=== PATIENT | male | born 1945 | race Caucasian/White ===

== ENCOUNTER 2021-02-03 15:06 | Inpatient (IN) ==
[2021-02-03] MEDS ORDERED: Ipratropium/Albuterol Neb 3 ML IH ONE (15:22)
[2021-02-03] MEDS ORDERED: Isovue-370 500 ML BOTTLE IVP ONE (15:26)
[2021-02-03 16:15] LABS: Magnesium 1.5 mg/dL (1.6-2.6); Phosphorous 4.2 mg/dL (2.7-4.5)
[2021-02-03 16:16] LABS: INR 1.2; Prothrombin Time 13.2 Seconds (9.4-12.1); Troponin I 0.03 ng/mL (< 0.04)
[2021-02-03 16:18] LABS: Activated Partial Thrombo Time 30.8 Seconds (26.0-36.0)
[2021-02-03] MEDS: 0.9 % Sodium Chloride 1,000 ML IVC SCH ×2 (16:28→23:57)
[2021-02-03] MEDS ORDERED: Magnesium Sulfate 1 GM/102 ML PIGGYBACK IVPB ONE (19:32)
[2021-02-03] MEDS ORDERED: Naloxone 0.4 MG/ML INJ IVP PRN (19:38)
[2021-02-03] MEDS ORDERED: D5% in Water 1,000 ML IVC PRN (20:12)
[2021-02-03] MEDS ORDERED: Dextrose Gel 15 GM/37.5 ML TUBE PO PRN ×2 (20:12)
[2021-02-03] MEDS ORDERED: *HR* Dextrose 50 % in Water (Syg) 50 ML SYRINGE IVP PRN (20:12)
[2021-02-03] MEDS: Ipratropium 1 PUFF INHALER IH SCH (22:17)
[2021-02-03] MEDS: Insulin LISPRO 300 UNITS/3 ML VIAL SUBQ SCH (23:34)
[2021-02-03 23:42] LABS: Albumin 3.4 g/dL (3.5-5.7); Albumin/Globulin Ratio 1.2 (1.1-2.2); Bilirubin,Direct 0.1 mg/dL (0.0-0.2); Bilirubin,Indirect 0.4 mg/dL (0.0-1.0); Bilirubin,Total 0.5 mg/dL (0.3-1.0); Globulin 2.8 g/dL (2.4-3.5); Total Protein 6.2 g/dL (6.4-8.9)
[2021-02-04] MEDS: Ipratropium 1 PUFF INHALER IH SCH ×4 (03:35→22:40)
[2021-02-04 05:01] LABS: Hematocrit 32.8 % (37.5-50.1); Hemoglobin 11.2 g/dL (12.9-16.9); Mean Corpuscular HGB Conc 34.1 g/dL (31.6-35.5); Mean Corpuscular Hemoglobin 30.9 pg (28.0-33.3); Mean Corpuscular Volume 90.6 fL (83.0-100.0); Mean Platelet Volume 10.9 fL (9.4-12.4); Platelet Count 171 K/mcL (140-400); Red Blood Count 3.62 M/mcL (4.19-5.50); Red Cell Distribution Width 12.8 % (11.5-14.5); White Blood Count 3.2 K/mcL (4.3-11.1)
[2021-02-04 05:19] LABS: BUN/Creatinine Ratio 24 (6-26); Blood Urea Nitrogen 24 mg/dL (8-23); Calcium 7.9 mg/dL (8.6-10.3); Carbon Dioxide 28 mEq/L (23-29); Chloride 98 mEq/L (98-107); Glucose 236 mg/dL (70-105); Osmolality,Calculated 290 (280-300); Potassium 4.5 mEq/L (3.5-5.1); Sodium 134 mEq/L (136-145); eGFR For African Americans > 60 (> 60); eGFR For Non-African Americans > 60 (> 60)
[2021-02-04] MEDS: *HR* Enoxaparin 40 MG/0.4 ML SYRINGE SQ SCH (06:04)
[2021-02-04] MEDS: 0.9 % Sodium Chloride 1,000 ML IVC SCH (06:04)
[2021-02-04] MEDS ORDERED: Remdesivir 200 MG in 0.9 % Sodium Chloride 100 ML IVPB ONE (09:12)
[2021-02-04] MEDS: Insulin LISPRO 300 UNITS/3 ML VIAL SUBQ SCH ×4 (09:57→22:38)
[2021-02-04] MEDS ORDERED: SODIUM CHLORIDE 0.9% IVPB ONE (19:30)
[2021-02-04] MEDS ORDERED: TOCILIZUMAB IVPB ONE (19:30)
[2021-02-05 03:39] LABS: Hemoglobin 11.8 g/dL (12.9-16.9); Immature Granulocytes % 0.3 % (0-4); Lymphocytes # 0.5 K/mcL (0.6-4.6); Lymphocytes % 5.3 %; Mean Corpuscular HGB Conc 34.7 g/dL (31.6-35.5); Mean Corpuscular Hemoglobin 32.1 pg (28.0-33.3); Mean Corpuscular Volume 92.4 fL (83.0-100.0); Mean Platelet Volume 10.6 fL (9.4-12.4); Monocytes # 0.8 K/mcL (0.0-1.3); Monocytes % 8.8 %; Neutrophils # 7.5 K/mcL (1.6-8.9); Platelet Count 220 K/mcL (140-400); Red Blood Count 3.68 M/mcL (4.19-5.50); Red Cell Distribution Width 13.1 % (11.5-14.5); Segmented Neutrophils % 85.6 %
[2021-02-05 03:40] LABS: Albumin 3.4 g/dL (3.5-5.7); Albumin/Globulin Ratio 1.2 (1.1-2.2); BUN/Creatinine Ratio 24 (6-26); Bilirubin,Direct 0.1 mg/dL (0.0-0.2); Bilirubin,Indirect 0.4 mg/dL (0.0-1.0); Bilirubin,Total 0.5 mg/dL (0.3-1.0); Blood Urea Nitrogen 24 mg/dL (8-23); Calcium 8.4 mg/dL (8.6-10.3); Carbon Dioxide 26 mEq/L (23-29); Chloride 102 mEq/L (98-107); Globulin 2.8 g/dL (2.4-3.5); Glucose 171 mg/dL (70-105); Osmolality,Calculated 294 (280-300); Potassium 5.1 mEq/L (3.5-5.1); Sodium 138 mEq/L (136-145); Total Protein 6.2 g/dL (6.4-8.9); eGFR For African Americans > 60 (> 60); eGFR For Non-African Americans > 60 (> 60)
[2021-02-05 03:47] LABS: White Blood Count 8.8 K/mcL (4.3-11.1)
[2021-02-05] MEDS: Ipratropium 1 PUFF INHALER IH SCH ×4 (04:18→21:47)
[2021-02-05] MEDS: *HR* Enoxaparin 40 MG/0.4 ML SYRINGE SQ SCH (05:59)
[2021-02-05] MEDS: Insulin LISPRO 300 UNITS/3 ML VIAL SUBQ SCH ×4 (09:37→21:28)
[2021-02-05] MEDS: Remdesivir 100 MG in 0.9 % Sodium Chloride 100 ML IVPB SCH (09:37)
[2021-02-05] MEDS: carvediloL 6.25 MG TABLET PO SCH (21:31)
[2021-02-06] MEDS: Ipratropium 1 PUFF INHALER IH SCH ×4 (03:41→22:27)
[2021-02-06] MEDS: *HR* Enoxaparin 40 MG/0.4 ML SYRINGE SQ SCH (05:54)
[2021-02-06 06:39] LABS: Basophils % 0.1 %; Hematocrit 36.5 % (37.5-50.1); Hemoglobin 12.2 g/dL (12.9-16.9); Immature Granulocytes % 0.7 % (0-4); Lymphocytes # 0.4 K/mcL (0.6-4.6); Lymphocytes % 5.4 %; Mean Corpuscular HGB Conc 33.4 g/dL (31.6-35.5); Mean Corpuscular Hemoglobin 30.5 pg (28.0-33.3); Mean Corpuscular Volume 91.3 fL (83.0-100.0); Mean Platelet Volume 10.3 fL (9.4-12.4); Monocytes # 0.8 K/mcL (0.0-1.3); Monocytes % 9.1 %; Neutrophils # 6.9 K/mcL (1.6-8.9); Platelet Count 248 K/mcL (140-400); Segmented Neutrophils % 84.7 %; White Blood Count 8.2 K/mcL (4.3-11.1)
[2021-02-06 06:49] LABS: Alanine Aminotransferase 26 Units/L (7-52); Albumin 3.4 g/dL (3.5-5.7); Albumin/Globulin Ratio 1.2 (1.1-2.2); Alkaline Phosphatase 79 Units/L (34-104); Aspartate Amino Transferase 28 Units/L (13-39); BUN/Creatinine Ratio 29 (6-26); Bilirubin,Direct 0.3 mg/dL (0.0-0.2); Bilirubin,Indirect 0.3 mg/dL (0.0-1.0); Bilirubin,Total 0.6 mg/dL (0.3-1.0); Blood Urea Nitrogen 24 mg/dL (8-23); Calcium 8.8 mg/dL (8.6-10.3); Carbon Dioxide 26 mEq/L (23-29); Chloride 104 mEq/L (98-107); Globulin 2.8 g/dL (2.4-3.5); Glucose 200 mg/dL (70-105); Osmolality,Calculated 300 (280-300); Potassium 4.4 mEq/L (3.5-5.1); Sodium 140 mEq/L (136-145); Total Protein 6.2 g/dL (6.4-8.9); eGFR For African Americans > 60 (> 60); eGFR For Non-African Americans > 60 (> 60)
[2021-02-06] MEDS: Cholecalciferol (D-3) 1,000 UNIT (25MCG) TABLET PO SCH (07:56)
[2021-02-06] MEDS: amLODIPine 5 MG TABLET PO SCH (07:56)
[2021-02-06] MEDS: Insulin LISPRO 300 UNITS/3 ML VIAL SUBQ SCH ×4 (07:56→21:30)
[2021-02-06] MEDS: Aspirin Enteric Coated 81 MG Tablet PO SCH (07:56)
[2021-02-06] MEDS: lisinopriL 20 MG TABLET PO SCH (07:56)
[2021-02-06] MEDS: carvediloL 6.25 MG TABLET PO SCH ×2 (07:56→21:53)
[2021-02-06] MEDS: Remdesivir 100 MG in 0.9 % Sodium Chloride 100 ML IVPB SCH (09:30)
[2021-02-07 01:53] LABS: Basophils % 0.3 %; Hematocrit 37.1 % (37.5-50.1); Hemoglobin 12.2 g/dL (12.9-16.9); Immature Granulocytes % 0.6 % (0-4); Lymphocytes # 0.6 K/mcL (0.6-4.6); Mean Corpuscular HGB Conc 32.9 g/dL (31.6-35.5); Mean Corpuscular Hemoglobin 30.3 pg (28.0-33.3); Mean Corpuscular Volume 92.3 fL (83.0-100.0); Mean Platelet Volume 10.3 fL (9.4-12.4); Monocytes # 0.4 K/mcL (0.0-1.3); Monocytes % 5.9 %; Platelet Count 295 K/mcL (140-400); Red Blood Count 4.02 M/mcL (4.19-5.50); Red Cell Distribution Width 12.7 % (11.5-14.5); Segmented Neutrophils % 85.2 %
[2021-02-07 02:08] LABS: Albumin 3.3 g/dL (3.5-5.7); Albumin/Globulin Ratio 1.3 (1.1-2.2); Bilirubin,Direct 0.2 mg/dL (0.0-0.2); Bilirubin,Indirect 0.5 mg/dL (0.0-1.0); Bilirubin,Total 0.7 mg/dL (0.3-1.0); Globulin 2.6 g/dL (2.4-3.5); Total Protein 5.9 g/dL (6.4-8.9)
[2021-02-07 02:11] LABS: BUN/Creatinine Ratio 34 (6-26); Blood Urea Nitrogen 28 mg/dL (8-23); Calcium 8.5 mg/dL (8.6-10.3); Carbon Dioxide 23 mEq/L (23-29); Chloride 103 mEq/L (98-107); Glucose 211 mg/dL (70-105); Osmolality,Calculated 294 (280-300); Potassium 4.7 mEq/L (3.5-5.1); Sodium 136 mEq/L (136-145); eGFR For African Americans > 60 (> 60); eGFR For Non-African Americans > 60 (> 60)
[2021-02-07 02:20] LABS: Platelet Estimate Normal (Normal)
[2021-02-07] MEDS: Acetaminophen 325 MG TABLET PO PRN (04:19)
[2021-02-07] MEDS: Ipratropium 1 PUFF INHALER IH SCH ×4 (04:36→20:43)
[2021-02-07] MEDS: *HR* Enoxaparin 40 MG/0.4 ML SYRINGE SQ SCH (05:52)
[2021-02-07] MEDS: Insulin LISPRO 300 UNITS/3 ML VIAL SUBQ SCH ×4 (07:44→20:41)
[2021-02-07] MEDS: amLODIPine 5 MG TABLET PO SCH (07:47)
[2021-02-07] MEDS: Aspirin Enteric Coated 81 MG Tablet PO SCH (07:47)
[2021-02-07] MEDS: Cholecalciferol (D-3) 1,000 UNIT (25MCG) TABLET PO SCH (07:47)
[2021-02-07] MEDS: carvediloL 6.25 MG TABLET PO SCH ×2 (07:47→16:18)
[2021-02-07] MEDS: lisinopriL 20 MG TABLET PO SCH (07:47)
[2021-02-07] MEDS: Remdesivir 100 MG in 0.9 % Sodium Chloride 100 ML IVPB SCH (09:09)
[2021-02-08 01:27] LABS: Albumin/Globulin Ratio 1.2 (1.1-2.2); Bilirubin,Direct 0.3 mg/dL (0.0-0.2); Bilirubin,Indirect 0.5 mg/dL (0.0-1.0); Bilirubin,Total 0.8 mg/dL (0.3-1.0); Globulin 2.6 g/dL (2.4-3.5); Total Protein 5.6 g/dL (6.4-8.9)
[2021-02-08 01:30] LABS: BUN/Creatinine Ratio 37 (6-26); Blood Urea Nitrogen 31 mg/dL (8-23); Calcium 8.1 mg/dL (8.6-10.3); Carbon Dioxide 22 mEq/L (23-29); Chloride 101 mEq/L (98-107); Glucose 287 mg/dL (70-105); Osmolality,Calculated 293 (280-300); Potassium 4.7 mEq/L (3.5-5.1); Sodium 133 mEq/L (136-145); eGFR For African Americans > 60 (> 60); eGFR For Non-African Americans > 60 (> 60)
[2021-02-08 01:32] LABS: Basophils % 0.1 %; Hematocrit 35.1 % (37.5-50.1); Hemoglobin 11.7 g/dL (12.9-16.9); Immature Granulocytes % 0.5 % (0-4); Lymphocytes # 0.5 K/mcL (0.6-4.6); Lymphocytes % 7.3 %; Mean Corpuscular HGB Conc 33.3 g/dL (31.6-35.5); Mean Corpuscular Hemoglobin 29.8 pg (28.0-33.3); Mean Corpuscular Volume 89.5 fL (83.0-100.0); Mean Platelet Volume 10.2 fL (9.4-12.4); Monocytes # 0.4 K/mcL (0.0-1.3); Monocytes % 5.5 %; Neutrophils # 6.3 K/mcL (1.6-8.9); Platelet Count 314 K/mcL (140-400); Red Blood Count 3.92 M/mcL (4.19-5.50); Red Cell Distribution Width 12.5 % (11.5-14.5); Segmented Neutrophils % 86.6 %; White Blood Count 7.3 K/mcL (4.3-11.1)
[2021-02-08 02:33] LABS: Anisocytosis 1+ (Not Present); Platelet Estimate Normal (Normal)
[2021-02-08] MEDS: Ipratropium 1 PUFF INHALER IH SCH ×4 (04:20→22:21)
[2021-02-08] MEDS: *HR* Enoxaparin 40 MG/0.4 ML SYRINGE SQ SCH (06:04)
[2021-02-08] MEDS: amLODIPine 5 MG TABLET PO SCH (08:40)
[2021-02-08] MEDS: Aspirin Enteric Coated 81 MG Tablet PO SCH (08:40)
[2021-02-08] MEDS: Cholecalciferol (D-3) 1,000 UNIT (25MCG) TABLET PO SCH (08:40)
[2021-02-08] MEDS: carvediloL 6.25 MG TABLET PO SCH ×2 (08:40→17:18)
[2021-02-08] MEDS: lisinopriL 20 MG TABLET PO SCH (08:40)
[2021-02-08] MEDS: Insulin LISPRO 300 UNITS/3 ML VIAL SUBQ SCH ×4 (08:40→21:51)
[2021-02-08] MEDS: polyethylene glycoL 3350 17 GM POWD.PACK PO SCH (10:58)
[2021-02-08] MEDS: Remdesivir 100 MG in 0.9 % Sodium Chloride 100 ML IVPB SCH (10:58)
[2021-02-09 02:20] LABS: Basophils % 0.2 %; Hematocrit 33.3 % (37.5-50.1); Hemoglobin 11.6 g/dL (12.9-16.9); Immature Granulocytes % 0.6 % (0-4); Lymphocytes # 0.6 K/mcL (0.6-4.6); Lymphocytes % 4.8 %; Mean Corpuscular HGB Conc 34.8 g/dL (31.6-35.5); Mean Platelet Volume 10.4 fL (9.4-12.4); Monocytes % 6.6 %; Platelet Count 450 K/mcL (140-400); Red Blood Count 3.74 M/mcL (4.19-5.50); Red Cell Distribution Width 12.4 % (11.5-14.5); Segmented Neutrophils % 87.8 %
[2021-02-09 02:38] LABS: BUN/Creatinine Ratio 36 (6-26); Blood Urea Nitrogen 33 mg/dL (8-23); Calcium 8.3 mg/dL (8.6-10.3); Carbon Dioxide 23 mEq/L (23-29); Chloride 100 mEq/L (98-107); Glucose 191 mg/dL (70-105); Osmolality,Calculated 288 (280-300); Potassium 5.1 mEq/L (3.5-5.1); Sodium 133 mEq/L (136-145); eGFR For African Americans > 60 (> 60); eGFR For Non-African Americans > 60 (> 60)
[2021-02-09 02:39] LABS: Albumin 3.1 g/dL (3.5-5.7); Albumin/Globulin Ratio 1.1 (1.1-2.2); Bilirubin,Direct 0.3 mg/dL (0.0-0.2); Bilirubin,Indirect 0.5 mg/dL (0.0-1.0); Bilirubin,Total 0.8 mg/dL (0.3-1.0); Globulin 2.7 g/dL (2.4-3.5); Total Protein 5.8 g/dL (6.4-8.9)
[2021-02-09 02:41] LABS: Monocytes # 0.8 K/mcL (0.0-1.3); Neutrophils # 11.2 K/mcL (1.6-8.9); White Blood Count 12.8 K/mcL (4.3-11.1)
[2021-02-09 03:37] LABS: Anisocytosis 1+ (Not Present); Platelet Estimate Normal (Normal)
[2021-02-09] MEDS: Ipratropium 1 PUFF INHALER IH SCH ×4 (03:49→20:36)
[2021-02-09] MEDS: *HR* Enoxaparin 40 MG/0.4 ML SYRINGE SQ SCH (05:29)
[2021-02-09] MEDS: Furosemide 40 MG/4 ML VIAL IVP SCH (08:05)
[2021-02-09] MEDS: lisinopriL 20 MG TABLET PO SCH (08:05)
[2021-02-09] MEDS: Aspirin Enteric Coated 81 MG Tablet PO SCH (08:05)
[2021-02-09] MEDS: Cholecalciferol (D-3) 1,000 UNIT (25MCG) TABLET PO SCH (08:05)
[2021-02-09] MEDS: amLODIPine 5 MG TABLET PO SCH (08:05)
[2021-02-09] MEDS: polyethylene glycoL 3350 17 GM POWD.PACK PO SCH (08:06)
[2021-02-09] MEDS: carvediloL 6.25 MG TABLET PO SCH ×2 (08:08→17:38)
[2021-02-09] MEDS: Insulin LISPRO 300 UNITS/3 ML VIAL SUBQ SCH ×4 (08:09→23:06)
[2021-02-10] MEDS: Ipratropium 1 PUFF INHALER IH SCH ×4 (03:47→21:14)
[2021-02-10] MEDS: *HR* Enoxaparin 40 MG/0.4 ML SYRINGE SQ SCH (05:44)
[2021-02-10 07:43] LABS: Basophils % 0.1 %; Hematocrit 32.9 % (37.5-50.1); Hemoglobin 11.6 g/dL (12.9-16.9); Immature Granulocytes % 0.9 % (0-4); Lymphocytes # 0.4 K/mcL (0.6-4.6); Lymphocytes % 2.9 %; Mean Corpuscular HGB Conc 35.3 g/dL (31.6-35.5); Mean Corpuscular Hemoglobin 31.2 pg (28.0-33.3); Mean Corpuscular Volume 88.4 fL (83.0-100.0); Mean Platelet Volume 10.8 fL (9.4-12.4); Monocytes # 1.4 K/mcL (0.0-1.3); Monocytes % 9.5 %; Neutrophils # 12.7 K/mcL (1.6-8.9); Platelet Count 442 K/mcL (140-400); Red Blood Count 3.72 M/mcL (4.19-5.50); Red Cell Distribution Width 12.4 % (11.5-14.5); Segmented Neutrophils % 86.6 %; White Blood Count 14.7 K/mcL (4.3-11.1)
[2021-02-10 08:02] LABS: BUN/Creatinine Ratio 35 (6-26); Blood Urea Nitrogen 33 mg/dL (8-23); Calcium 8.3 mg/dL (8.6-10.3); Carbon Dioxide 25 mEq/L (23-29); Chloride 99 mEq/L (98-107); Glucose 253 mg/dL (70-105); Magnesium 2.1 mg/dL (1.6-2.6); Osmolality,Calculated 290 (280-300); Phosphorous 4.4 mg/dL (2.7-4.5); Potassium 5.1 mEq/L (3.5-5.1); Sodium 132 mEq/L (136-145); eGFR For African Americans > 60 (> 60); eGFR For Non-African Americans > 60 (> 60)
[2021-02-10] MEDS: lisinopriL 20 MG TABLET PO SCH (09:07)
[2021-02-10] MEDS: amLODIPine 5 MG TABLET PO SCH (09:07)
[2021-02-10] MEDS: Aspirin Enteric Coated 81 MG Tablet PO SCH (09:07)
[2021-02-10] MEDS: Cholecalciferol (D-3) 1,000 UNIT (25MCG) TABLET PO SCH (09:07)
[2021-02-10] MEDS: carvediloL 6.25 MG TABLET PO SCH ×2 (09:08→17:17)
[2021-02-10] MEDS: Acetaminophen 325 MG TABLET PO PRN (09:08)
[2021-02-10] MEDS: Furosemide 40 MG/4 ML VIAL IVP SCH (09:08)
[2021-02-10] MEDS: polyethylene glycoL 3350 17 GM POWD.PACK PO SCH (09:08)
[2021-02-10] MEDS: Insulin LISPRO 300 UNITS/3 ML VIAL SUBQ SCH ×4 (09:09→20:14)
[2021-02-11] MEDS: Melatonin 3 MG TABLET PO PRN ×2 (00:08→22:17)
[2021-02-11 02:21] LABS: Basophils % 0.1 %; Hematocrit 31.9 % (37.5-50.1); Immature Granulocytes % 0.9 % (0-4); Lymphocytes # 0.3 K/mcL (0.6-4.6); Lymphocytes % 2.7 %; Mean Corpuscular HGB Conc 34.5 g/dL (31.6-35.5); Mean Corpuscular Hemoglobin 30.6 pg (28.0-33.3); Mean Corpuscular Volume 88.6 fL (83.0-100.0); Mean Platelet Volume 11.1 fL (9.4-12.4); Monocytes # 0.7 K/mcL (0.0-1.3); Monocytes % 6.6 %; Neutrophils # 9.7 K/mcL (1.6-8.9); Platelet Count 374 K/mcL (140-400); Red Cell Distribution Width 12.2 % (11.5-14.5); Segmented Neutrophils % 89.7 %; White Blood Count 10.8 K/mcL (4.3-11.1)
[2021-02-11 02:34] LABS: BUN/Creatinine Ratio 41 (6-26); Blood Urea Nitrogen 37 mg/dL (8-23); Calcium 8.1 mg/dL (8.6-10.3); Carbon Dioxide 25 mEq/L (23-29); Chloride 101 mEq/L (98-107); Glucose 182 mg/dL (70-105); Magnesium 2.2 mg/dL (1.6-2.6); Osmolality,Calculated 289 (280-300); Phosphorous 4.5 mg/dL (2.7-4.5); Potassium 4.6 mEq/L (3.5-5.1); Sodium 133 mEq/L (136-145); eGFR For African Americans > 60 (> 60); eGFR For Non-African Americans > 60 (> 60)
[2021-02-11] MEDS: Ipratropium 1 PUFF INHALER IH SCH ×4 (03:12→23:00)
[2021-02-11] MEDS: *HR* Enoxaparin 40 MG/0.4 ML SYRINGE SQ SCH (05:24)
[2021-02-11] MEDS: lisinopriL 20 MG TABLET PO SCH (08:18)
[2021-02-11] MEDS: Acetaminophen 325 MG TABLET PO PRN (08:19)
[2021-02-11] MEDS: Furosemide 40 MG/4 ML VIAL IVP SCH (08:19)
[2021-02-11] MEDS: Aspirin Enteric Coated 81 MG Tablet PO SCH (08:19)
[2021-02-11] MEDS: amLODIPine 5 MG TABLET PO SCH (08:19)
[2021-02-11] MEDS: Cholecalciferol (D-3) 1,000 UNIT (25MCG) TABLET PO SCH (08:19)
[2021-02-11] MEDS: carvediloL 6.25 MG TABLET PO SCH ×2 (08:19→16:54)
[2021-02-11] MEDS: Insulin LISPRO 300 UNITS/3 ML VIAL SUBQ SCH ×4 (08:20→22:11)
[2021-02-11] MEDS: polyethylene glycoL 3350 17 GM POWD.PACK PO SCH (08:20)
[2021-02-11] MEDS ORDERED: NON-FORMULARY MEDICATION 1 EACH EACH (Tiotropium Bromide [Spiriva Handihaler] 18 MCG Cap.W IH SCH (09:00)
[2021-02-11] MEDS: Magnesium Oxide 400 MG TABLET PO SCH (12:06)
[2021-02-12 02:07] LABS: Basophils % 0.2 %; Hematocrit 32.4 % (37.5-50.1); Hemoglobin 11.1 g/dL (12.9-16.9); Immature Granulocytes % 1.2 % (0-4); Lymphocytes # 0.3 K/mcL (0.6-4.6); Lymphocytes % 2.3 %; Mean Corpuscular HGB Conc 34.3 g/dL (31.6-35.5); Mean Corpuscular Hemoglobin 30.2 pg (28.0-33.3); Mean Corpuscular Volume 88.3 fL (83.0-100.0); Mean Platelet Volume 11.2 fL (9.4-12.4); Monocytes % 8.3 %; Platelet Count 366 K/mcL (140-400); Red Blood Count 3.67 M/mcL (4.19-5.50); Red Cell Distribution Width 12.1 % (11.5-14.5); White Blood Count 12.4 K/mcL (4.3-11.1)
[2021-02-12 02:25] LABS: BUN/Creatinine Ratio 39 (6-26); Blood Urea Nitrogen 40 mg/dL (8-23); Calcium 8.2 mg/dL (8.6-10.3); Carbon Dioxide 24 mEq/L (23-29); Chloride 98 mEq/L (98-107); Glucose 223 mg/dL (70-105); Magnesium 2.1 mg/dL (1.6-2.6); Osmolality,Calculated 289 (280-300); Phosphorous 4.7 mg/dL (2.7-4.5); Potassium 4.8 mEq/L (3.5-5.1); Sodium 131 mEq/L (136-145); eGFR For African Americans > 60 (> 60); eGFR For Non-African Americans > 60 (> 60)
[2021-02-12] MEDS: Ipratropium 1 PUFF INHALER IH SCH ×4 (03:21→20:20)
[2021-02-12] MEDS: *HR* Enoxaparin 40 MG/0.4 ML SYRINGE SQ SCH (06:04)
[2021-02-12] MEDS: lisinopriL 20 MG TABLET PO SCH (08:53)
[2021-02-12] MEDS: Magnesium Oxide 400 MG TABLET PO SCH (08:53)
[2021-02-12] MEDS: Cholecalciferol (D-3) 1,000 UNIT (25MCG) TABLET PO SCH (08:53)
[2021-02-12] MEDS: Aspirin Enteric Coated 81 MG Tablet PO SCH (08:54)
[2021-02-12] MEDS: polyethylene glycoL 3350 17 GM POWD.PACK PO SCH (08:54)
[2021-02-12] MEDS: carvediloL 6.25 MG TABLET PO SCH ×2 (08:54→17:37)
[2021-02-12] MEDS: amLODIPine 5 MG TABLET PO SCH (08:54)
[2021-02-12] MEDS: Furosemide 40 MG TABLET PO SCH (08:54)
[2021-02-12] MEDS: Insulin LISPRO 300 UNITS/3 ML VIAL SUBQ SCH ×4 (09:08→20:46)
[2021-02-12] MEDS: Dexamethasone Sodium Phos/PF 10 MG/ML VIAL IVP SCH (09:09)
[2021-02-13] MEDS: Ipratropium 1 PUFF INHALER IH SCH ×4 (04:15→19:51)
[2021-02-13] MEDS ORDERED: Ondansetron 4 MG/2 ML VIAL ONE (05:56)
[2021-02-13] MEDS: Ondansetron 4 MG/2 ML VIAL IVP PRN ×3 (06:00→19:34)
[2021-02-13] MEDS: *HR* Enoxaparin 40 MG/0.4 ML SYRINGE SQ SCH (06:30)
[2021-02-13] MEDS: Dexamethasone Sodium Phos/PF 10 MG/ML VIAL IVP SCH (09:49)
[2021-02-13] MEDS: Insulin LISPRO 300 UNITS/3 ML VIAL SUBQ SCH ×4 (09:51→21:46)
[2021-02-13] MEDS: lisinopriL 20 MG TABLET PO SCH (10:12)
[2021-02-13] MEDS: amLODIPine 5 MG TABLET PO SCH (10:12)
[2021-02-13] MEDS: Furosemide 40 MG TABLET PO SCH (10:12)
[2021-02-13] MEDS: Cholecalciferol (D-3) 1,000 UNIT (25MCG) TABLET PO SCH (10:12)
[2021-02-13] MEDS: Magnesium Oxide 400 MG TABLET PO SCH (10:13)
[2021-02-13] MEDS: carvediloL 6.25 MG TABLET PO SCH ×2 (10:13→17:14)
[2021-02-13] MEDS: polyethylene glycoL 3350 17 GM POWD.PACK PO SCH (10:15)
[2021-02-13] MEDS: Aspirin Enteric Coated 81 MG Tablet PO SCH (10:15)
[2021-02-13 17:55] LABS: Basophils % 0.1 %; Hematocrit 33.5 % (37.5-50.1); Hemoglobin 11.5 g/dL (12.9-16.9); Immature Granulocytes % 0.6 % (0-4); Lymphocytes # 0.2 K/mcL (0.6-4.6); Lymphocytes % 1.1 %; Mean Corpuscular HGB Conc 34.3 g/dL (31.6-35.5); Mean Corpuscular Volume 90.3 fL (83.0-100.0); Mean Platelet Volume 11.5 fL (9.4-12.4); Monocytes # 0.4 K/mcL (0.0-1.3); Platelet Count 390 K/mcL (140-400); Red Blood Count 3.71 M/mcL (4.19-5.50); Red Cell Distribution Width 12.4 % (11.5-14.5); Segmented Neutrophils % 96.2 %; White Blood Count 17.6 K/mcL (4.3-11.1)
[2021-02-13 18:18] LABS: BUN/Creatinine Ratio 38 (6-26); Blood Urea Nitrogen 47 mg/dL (8-23); Calcium 8.3 mg/dL (8.6-10.3); Carbon Dioxide 28 mEq/L (23-29); Chloride 99 mEq/L (98-107); Glucose 219 mg/dL (70-105); Magnesium 2.7 mg/dL (1.6-2.6); Osmolality,Calculated 295 (280-300); Phosphorous 4.8 mg/dL (2.7-4.5); Potassium 5.2 mEq/L (3.5-5.1); Sodium 133 mEq/L (136-145); eGFR For African Americans > 60 (> 60); eGFR For Non-African Americans 57 (> 60)
[2021-02-13] MEDS ORDERED: Acetaminophen IV 1,000 MG/100 ML BAG IVPB ONE (22:55)
[2021-02-13] MEDS ORDERED: Isovue-370 500 ML BOTTLE IVP ONE (23:53)
[2021-02-14 00:48] LABS: Hemoglobin 12.3 g/dL (12.9-16.9); Mean Platelet Volume 11.7 fL (9.4-12.4); Red Cell Distribution Width 12.3 % (11.5-14.5)
[2021-02-14 00:49] LABS: Basophils % 0.2 %; Hematocrit 35.8 % (37.5-50.1); Immature Granulocytes % 0.8 % (0-4); Lymphocytes # 0.2 K/mcL (0.6-4.6); Lymphocytes % 0.8 %; Mean Corpuscular HGB Conc 34.4 g/dL (31.6-35.5); Mean Corpuscular Hemoglobin 30.7 pg (28.0-33.3); Mean Corpuscular Volume 89.3 fL (83.0-100.0); Monocytes # 1.9 K/mcL (0.0-1.3); Monocytes % 7.1 %; Platelet Count 427 K/mcL (140-400); Red Blood Count 4.01 M/mcL (4.19-5.50); Segmented Neutrophils % 91.1 %; White Blood Count 26.4 K/mcL (4.3-11.1)
[2021-02-14 00:51] LABS: Basophils # 0.1 K/mcL (0.0-0.2); Neutrophils # 24.1 K/mcL (1.6-8.9)
[2021-02-14 01:06] LABS: Calcium 8.1 mg/dL (8.6-10.3); Magnesium 2.7 mg/dL (1.6-2.6); Phosphorous 5.8 mg/dL (2.7-4.5); Potassium 5.1 mEq/L (3.5-5.1)
[2021-02-14] MEDS ORDERED: Morphine Sulfate 2 MG/ML SYRINGE IVP ONE ×2 (02:42→08:47)
[2021-02-14] MEDS: Ipratropium 1 PUFF INHALER IH SCH ×2 (03:31→09:19)
[2021-02-14] MEDS ORDERED: Pantoprazole 40 MG VIAL IVP ONE (05:11)
[2021-02-14] MEDS: Pantoprazole 40 MG in 0.9 % Sodium Chloride Mini Bag 100 ML IVC SCH ×2 (05:40→09:20)
[2021-02-14] MEDS: MetroNIDAZOLE 500 MG/100 ML 500 MG/100 ML BAG IVPB SCH ×2 (06:04→09:20)
[2021-02-14] MEDS ORDERED: 0.9 % Sodium Chloride 1,000 ML ONE (07:40)
[2021-02-14] MEDS ORDERED: 0.9 % Sodium Chloride 1,000 ML IVC ONE ×2 (07:40→08:51)
[2021-02-14] MEDS: Insulin LISPRO 300 UNITS/3 ML VIAL SUBQ SCH ×2 (08:05→09:20)
[2021-02-14] MEDS: Furosemide 40 MG TABLET PO SCH (08:07)
[2021-02-14] MEDS: carvediloL 6.25 MG TABLET PO SCH (08:07)
[2021-02-14] MEDS: Aspirin Enteric Coated 81 MG Tablet PO SCH (08:07)
[2021-02-14] MEDS: Cholecalciferol (D-3) 1,000 UNIT (25MCG) TABLET PO SCH (08:08)
[2021-02-14] MEDS: amLODIPine 5 MG TABLET PO SCH (08:08)
[2021-02-14] MEDS: Magnesium Oxide 400 MG TABLET PO SCH (08:08)
[2021-02-14] MEDS: lisinopriL 20 MG TABLET PO SCH (08:08)
[2021-02-14] MEDS: polyethylene glycoL 3350 17 GM POWD.PACK PO SCH (08:08)
[2021-02-14] MEDS: Albumin Human 5% 12.5 GM/250 ML IV.SOLN IVC SCH ×2 (08:16→09:21)
[2021-02-14] MEDS: Dexamethasone Sodium Phos/PF 10 MG/ML VIAL IVP SCH (08:33)
[2021-02-14 08:38] VITALS: BP 71/43; PULSE 83; TEMP 98.3
[2021-02-14] MEDS ORDERED: cefTRIAXone 2,000 MG in 0.9 % Sodium Chloride Mini Bag 100 ML IVPB SCH (09:00)
[2021-02-14] MEDS ORDERED: *HR* LORazepam 2 MG/ML VIAL IVP PRN (09:06)
[2021-02-14] MEDS ORDERED: Morphine Sulfate 2 MG/ML SYRINGE IVP PRN (09:07)
[2021-02-14 10:44] VITALS: O2SAT 90
== END 2021-02-14 10:00 | disposition expired | DRG 177 ==
LOC: EMEROOARM 15:06 → 2ANU 15:06 → SUATTDRO 02-04 18:13 → 2ANU 02-09 15:29
PROVIDERS: ADMIT Student in an Organized Health Care Education/Training Program; ATTEND Internal Medicine